=== PATIENT | female | born 2000 | race Caucasian/White ===

== ENCOUNTER 2018-12-25 19:59 | Emergency (ER) | payer OTHER ==
[2018-12-25 20:38] VITALS: BP 127/68
--- NOTE | 2018-12-25 20:43 | UC ---
Complaint Female HPI - HPI Summary HPI Summary: ONSET THREE DAYS AGO WITH PAINFUL URINATION. LOW BACK PAIN. NAUSEA. DIZZY AT TIMES. NO VAGINAL DISCHARGE. "URETHRA" ITCHES. - History Of Current Complaint Chief Complaint: UCGU Stated Complaint: URINARY COMPLAINT Time Seen by Provider: 12/25/18 20:30 Hx Last Menstrual Period: 12/08/18 Onset/Duration: Sudden Onset, Lasting Days Timing: Constant Severity Initially: Mild Severity Currently: Moderate Pain Intensity: 8 Character: Burning Aggravating Factor(s): Urination Associated Signs And Symptoms: Positive: Back Pain - Allergies/Home Medications Allergies/Adverse Reactions: Allergies Allergy/AdvReac Type Severity Reaction Status Date / Time No Known Allergies Allergy Verified 12/25/18 20:31 Home Medications: Home Medications Etonogest/Eth.estradiol (Nf) [Nuvaring Vaginal Ring] 1 each VAGINAL .SEE COMMENTS 12/25/18 [History Confirmed 12/25/18] hydrOXYzine HCL TAB* [Atarax 25 MG TAB*] 25 mg PO TID PRN 12/25/18 [History Confirmed 12/25/18] PMH/Surg Hx/FS Hx/Imm Hx Previously Healthy: Yes - Surgical History Surgical History: None - Family History Known Family History: Positive: Hypertension - Social History Alcohol Use: None Substance Use Type: None Smoking Status (MU): Former Smoker Type: Cigarettes When Did the Patient Quit Smoking/Using Tobacco: November Review of Systems All Other Systems Reviewed And Are Negative: Yes Genitourinary: Positive: Dysuria, Hematuria, Frequency, Urgency Is Patient Immunocompromised?: No Physical Exam Triage Information Reviewed: Yes Appearance: Well-Appearing, Well-Nourished, Pain Distress Vital Signs: Initial Vital Signs Temp 98.1 F 12/25/18 20:32 Pulse 84 12/25/18 20:32 Resp 18 12/25/18 20:32 BP 127/68 12/25/18 20:32 Pulse Ox 100 12/25/18 20:32 Vital Signs Reviewed: Yes Eye Exam: Normal ENT Exam: Normal Dental Exam: Normal Neck exam: Normal Respiratory Exam: Normal Cardiovascular Exam: Normal Abdomen Description: Positive: Nontender, No Organomegaly, Soft Bowel Sounds: Positive: Present Musculoskeletal Exam: Normal Neurological Exam: Normal Psychological Exam: Normal Complaint Female Dx - Course Course Of Treatment: hx obtained, exam performed ,meds reviewed, ua obtained and positive for leuks, blood and protein - Differential Dx/Diagnosis Differential Diagnosis/HQI/PQRI: Urinary Tract Infection Provider Diagnosis: UTI (urinary tract infection) Discharge - Sign-Out/Discharge Documenting (check all that apply): Patient Departure All imaging exams completed and their final reports reviewed: No Studies - Discharge Plan Condition: Stable Disposition: HOME Patient Education Materials: Urinary Tract Infection in Women (ED) Referrals: No Primary Care Phys,NOPCP [Primary Care Provider] - Additional Instructions: 1. take the medication as prescribed. 2. Increase fluid intake and get plenty of rest 3. FOllow up if not improving. - Billing Disposition and Condition Condition: STABLE Disposition: Home
[2018-12-25] MEDS ORDERED: Nitrofurantoin Macrocrystals* 50 MG CAP PO ONE (20:52)
[2018-12-25] MEDS ORDERED: Phenazopyridine 200 mg (NF) 200 MG TAB PO ONE (20:57)
[2018-12-25] MEDS ORDERED: Phenazopyridine TAB* 100 MG PO ONE (21:00)
== END 2018-12-25 21:08 | disposition home or self-care (01) ==
LOC: UCCORT 19:59
DX: N39.0 Urinary tract infection, site not specified (principal); B95.7 Other staphylococcus as the cause of diseases classified elsewhere; Z87.891 Personal history of nicotine dependence
CPT/HCPCS: 81003; 87077; 87086; 99202; A9270-GY; G0463

== ENCOUNTER 2019-01-25 15:52 | Emergency (ER) | payer OTHER ==
[2019-01-25 16:34] VITALS: BP 127/77
--- NOTE | 2019-01-25 16:35 | UC ---
Complaint Female HPI - HPI Summary HPI Summary: 18 y/o female presents to the urgent care c/o Burning with urination,urgency and lower back pain for the past 4 days. She has been drinking water and took AZo yesterday to alleviate symptoms. Pain is about a 3/10 associated w/ mild nausea and dizziness at times. Pt denies fever, flank pain, abdominal pain, SOB , chest pain, V/D, rash, vaginal discharge or Hx of STD's. LMP: 01/07/2019 w/ regular menstrual cycles. - History Of Current Complaint Chief Complaint: UCGU Stated Complaint: URINARY Time Seen by Provider: 01/25/19 16:34 Hx Obtained From: Patient Hx Last Menstrual Period: 01/07/2019 ?: No Onset/Duration: Gradual Onset, Lasting Days - 4 days ago, Still Present, Worse Since - yesterday w/ mild nausea and dizziness Timing: Intermittent, Lasting Seconds Severity Initially: Mild Severity Currently: Mild Pain Intensity: 3 Pain Scale Used: 0-10 Numeric Character: Burning Aggravating Factor(s): Urination Alleviating Factor(s): Position Associated Signs And Symptoms: Positive: Back Pain - lower back pain, Nausea. Negative: Fever, Vaginal Discharge, Vomiting(# Of Episodes =), Genital Swelling , Genital Blisters Related Hx: Similar Episode/Dx as: - UTI - Risk Factors Ectopic Risk Factor: Negative Ovarian Torsion Risk Factor: Negative - Allergies/Home Medications Allergies/Adverse Reactions: Allergies Allergy/AdvReac Type Severity Reaction Status Date / Time No Known Allergies Allergy Verified 01/25/19 16:34 PMH/Surg Hx/FS Hx/Imm Hx Previously Healthy: Yes - Pt denies PMHX - Surgical History Surgical History: None - Family History Known Family History: Positive: Cardiac Disease, Hypertension, Diabetes - Social History Occupation: Student Lives: With Family Alcohol Use: None Substance Use Type: None Smoking Status (MU): Former Smoker Type: Cigarettes When Did the Patient Quit Smoking/Using Tobacco: November - Immunization History Vaccination Up to Date: Yes Review of Systems All Other Systems Reviewed And Are Negative: Yes Constitutional: Positive: Negative Skin: Positive: Negative Eyes: Positive: Negative ENT: Positive: Negative Respiratory: Positive: Negative Cardiovascular: Positive: Negative Gastrointestinal: Positive: Nausea Genitourinary: Positive: Dysuria, Frequency, Urgency Motor: Positive: Negative Neurovascular: Positive: Negative Musculoskeletal: Positive: Negative Neurological: Positive: Negative Psychological: Positive: Negative Is Patient Immunocompromised?: No Physical Exam - Summary Physical Exam Summary: VITAL SIGNS: Reviewed. GENERAL: Patient is a well developed and nourished female who is sitting comfortable in the examining table. Patient is not in any acute respiratory distress. HEAD AND FACE: No signs of trauma. No ecchymosis, hematomas or skull depressions. No sinus tenderness. EYES: PERRLA, EOMI x 2, No injected conjunctiva, clear watery eyes, no nystagmus. No photophobia. EARS: Hearing grossly intact. Ear canals and tympanic membranes are within normal limits. MOUTH: pharynx with no erythema, no exudates,no palatal petechiae. no B/L tonsillar enlargement Uvula in midline. NECK: Supple, trachea is midline, no lymphadenopathy, no JVD, no carotid bruit, no c-spine tenderness, neck with full ROM. CHEST: Symmetric, no tenderness at palpation LUNGS: Clear to auscultation bilaterally. No wheezing or crackles. CVS: Regular rate and rhythm, S1 and S2 present, no murmurs or gallops appreciated. ABDOMEN: Soft, non-tender. No signs of distention. No rebound no guarding, and no masses palpated. Bowel sounds are normal. BACK:no scoliosis or lesions, non tender to palpation, No B/L CVA tenderness EXTREMITIES: FROM in all major joints, no edema, no cyanosis or clubbing. NEURO: Alert and oriented x 3. No acute neurological deficits. Speech is normal and follows commands. SKIN: Dry and warm Triage Information Reviewed: Yes Vital Signs: Initial Vital Signs Temp 98.6 F 01/25/19 16:29 Pulse 75 01/25/19 16:29 Resp 18 01/25/19 16:29 BP 127/77 01/25/19 16:29 Pulse Ox 100 01/25/19 16:29 Complaint Female Dx - Course Course Of Treatment: 18 y/o female presents to the urgent care c/o Burning with urination,urgency and lower back pain for the past 4 days. She has been drinking water and took AZo yesterday to alleviate symptoms. Pain is about a 3/10 associated w/ mild nausea and dizziness at times. Pt denies fever, flank pain, abdominal pain, SOB , chest pain, V/D, rash, vaginal discharge or Hx of STD's. LMP: 01/07/2019 w/ regular menstrual cycles. Hx obtained. PE: WNL. UA and test ordered. UA results: Blood trace, Leukoesterase 1+. test: negative. Pt Rx Macrobid 100mg PO x 7 days. Pyridium 100mg PO TID x 2 days. Advised to increase fluid intake. Urine sent for culture if any abnormality Pt will be notified for further treatment. Pt advised If symptoms do not improve to return to the urgent care or f/u with PCP. Pt understood and agreed. Left the clinic ambulating. - Differential Dx/Diagnosis Differential Diagnosis/HQI/PQRI: Cervicitis, Pelvic Inflammatory Disease, , Renal Colic, Sexually Transmitted Disease, Ureteral Stone, Urinary Tract Infection Provider Diagnosis: UTI (urinary tract infection) Discharge - Sign-Out/Discharge Documenting (check all that apply): Patient Departure - D/c home All imaging exams completed and their final reports reviewed: No Studies - Discharge Plan Condition: Stable Disposition: HOME Prescriptions: Nitrofurantoin Monohyd/M-Cryst [Macrobid 100 mg Capsule] 100 mg PO BID #14 cap Phenazopyridine TAB* [Pyridium 100 mg TAB*] 100 mg PO TID #6 tab Patient Education Materials: Urinary Tract Infection in Women (ED) Referrals: [facility] [Outside] - 3 Days Additional Instructions: 1- Please take Macrobid 100mg PO x 7 days. Pyridium 100 mg PO TID x 2 days to alleviate urinary symptoms. Increase increase fluid intake. drink cranberry juice. 2-Urine sent for culture if any abnormality, you will be notified for further treatment. 3-If symptoms do not improve please return to the urgent care or f/u with your PCP in 3 days for further management. - Billing Disposition and Condition Condition: STABLE Disposition: Home
== END 2019-01-25 17:13 | disposition home or self-care (01) ==
LOC: UCCORT 15:52
DX: N39.0 Urinary tract infection, site not specified (principal); Z87.891 Personal history of nicotine dependence
CPT/HCPCS: 81003; 84702; 87077; 87086; 99212; G0463